=== PATIENT | male | born 1955 | race Caucasian/White ===

== ENCOUNTER 2022-03-07 18:10 | Outpatient (RCR) | payer MEDICARE, OTHER, SELFPAY | END 2022-03-07 18:11 | disposition home or self-care (01) | LOC: WOUND 18:10 | PROVIDERS: Visit Provider Nurse Practitioner Family | DX: M27.8 Other specified diseases of jaws (principal) | CPT/HCPCS: G0277 ==

== ENCOUNTER 2022-03-14 10:30 | Outpatient (CLI) | payer MEDICARE, OTHER, SELFPAY | END 2022-03-14 10:31 | disposition home or self-care (01) | PROVIDERS: Visit Provider Nurse Practitioner Family | DX: M27.8 Other specified diseases of jaws (principal) | CPT/HCPCS: 99212; G0277 ==

== ENCOUNTER 2022-04-05 13:00 | Outpatient (RCR) | payer MEDICARE, OTHER, SELFPAY | END 2022-04-07 23:59 | disposition home or self-care (01) | LOC: WOUND 13:00 | PROVIDERS: Visit Provider Physician Assistant Surgical | DX: M27.8 Other specified diseases of jaws (principal) | CPT/HCPCS: 99212; G0277 ==

== ENCOUNTER 2022-04-30 13:00 | Outpatient (RCR) | payer MEDICARE, OTHER, SELFPAY | END 2022-05-08 23:59 | disposition home or self-care (01) | LOC: WOUND 13:00 | PROVIDERS: Visit Provider Nurse Practitioner Family | DX: M27.8 Other specified diseases of jaws (principal); I89.0 Lymphedema, not elsewhere classified | CPT/HCPCS: 99212; G0277 ==

== ENCOUNTER 2024-07-09 08:26 | Outpatient (CLI) | payer MEDICARE, OTHER, SELFPAY | END 2024-07-09 08:27 | disposition home or self-care (01) | LOC: WOUND 08:28 | PROVIDERS: Visit Provider Nurse Practitioner Family | DX: M27.8 Other specified diseases of jaws (principal); J95.09 Other tracheostomy complication | CPT/HCPCS: 97602; G0463 ==

== ENCOUNTER 2024-07-16 09:00 | Outpatient (CLI) | payer MEDICARE, OTHER, SELFPAY | END 2024-07-16 09:01 | disposition home or self-care (01) | LOC: WOUND 09:00 | PROVIDERS: Visit Provider Nurse Practitioner Family | DX: J95.09 Other tracheostomy complication (principal); M27.8 Other specified diseases of jaws | CPT/HCPCS: G0463 ==